=== PATIENT | male | born 1945 | race Caucasian/White ===

== ENCOUNTER → 2019-02-15 11:58 | Outpatient (CLI) | payer MEDICARE, SELFPAY ==
[2019-02-15 12:06] LABS: Adenovirus F 40/41, stool Not Detected (NotDetected); Astrovirus Not Detected (NotDetected); Campylobacter Not Detected (NotDetected); Clostridium Difficile A/B, PCR Not Detected (NotDetected); Cryptosporidium Not Detected (NotDetected); Cyclospora Cayetanesis Not Detected (NotDetected); Entamoeba histolytica Not Detected (NotDetected); Enteroaggregative E coli Not Detected (NotDetected); Enteropathogenic E coli Not Detected (NotDetected); Enterotoxigenic E coli Not Detected (NotDetected); Giardia lamblia Not Detected (NotDetected); Norovirus Not Detected (NotDetected); Plesimonas Shigalloides, PCR Not Detected (NotDetected); Rotavirus A Not Detected (NotDetected); Salmonella, PCR Not Detected (NotDetected); Sapovirus Not Detected (NotDetected); Shiga-like toxin E coli Not Detected (NotDetected); Shigella Enterovasive E coli Not Detected (NotDetected); Vibrio Cholerae Not Detected (NotDetected); Vibrio, PCR Not Detected (NotDetected); Yersinia Entercolitica, PCR Not Detected (NotDetected)
[2019-02-15 14:41] LABS: Basophils # 0.1 K/mm3 (0-0.2); Basophils % 0.7 % (0.1-2.0); Eosinophils # 0.1 K/mm3 (0.0-0.4); Eosinophils % 1.4 % (0.1-12.0); Hematocrit 47.7 % (42.0-52.0); Hemoglobin 15.4 g/dL (14.1-18.0); Lymphocytes # 1.9 K/mm3 (0.7-4.5); Lymphocytes % 19.8 % (10-50); Mean Corpuscular HGB Conc 32.2 g/dL (31.8-35.4); Mean Corpuscular Hemoglobin 30.2 pg (27.0-31.2); Mean Corpuscular Volume 93.9 fl (80-94); Mean Platelet Volume 8.8 fl (7.4-10.4); Monocytes # 0.6 K/mm3 (0.1-1.0); Monocytes % 5.7 % (1.7-9.3); Neutrophils % 72.5 % (37.0-80.0); Platelet Count 339 K/mm3 (142-424); Red Blood Count 5.08 M/mm3 (4.60-6.20); Red Cell Distribution Width 13.2 % (11.5-17.5); White Blood Count 9.7 K/mm3 (4.8-10.8)
[2019-02-15 15:28] LABS: Alanine Aminotransferase 45 U/L (12-78); Albumin/Globulin Ratio 1.3 (1.1-1.8); Alkaline Phosphatase 77 U/L (46-116); Aspartate Amino Transferase 29 U/L (15-37); Bilirubin,Total 0.6 mg/dL (0.2-1.0); Blood Urea Nitrogen 16 mg/dL (7-18); Calcium 9.3 mg/dL (8.5-10.1); Carbon Dioxide 21 mmol/L (21.0-32.0); Chloride 102 mmol/L (98-107); Creatinine,Serum 1.13 mg/dL (0.70-1.30); Estimated Glomerular Filt Rate 63 ml/min (>60); GFR (African American) 77 ML/MIN (>60); Globulin 3.2 gm/dl (1.3-3.2); Glucose 111 mg/dL (74-106); Sodium 138 mmol/L (136-145); Total Protein,Serum 7.2 gm/dL (6.4-8.2)
== END ==
PROVIDERS: PCP Nurse Practitioner Family; Visit Provider Nurse Practitioner Family
DX: K52.1 Toxic gastroenteritis and colitis (principal)
CPT/HCPCS: 36415; 80053; 85025; 87177; 87205; 87506

== ENCOUNTER → 2020-01-04 07:55 | Outpatient (CLI) | payer MEDICARE, SELFPAY ==
--- NOTE | 2020-01-04 08:02 | XR_ITS ---
PROCEDURE: XR LUMBAR SPINE MIN 4V CLINICAL INDICATION: LOW BACK PAIN COMPARISON: No exams were available for comparison FINDINGS: There is normal alignment. No acute fracture or dislocation evident. Mild multilevel degenerative disc disease in the lower thoracic spine, thoracolumbar junction, L1-L2 and L2-L3. Anterior osteophytes are present at every level and there is degenerative disc disease also at L5-S1. Facet arthritic changes are present from L3-S1. 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 IMPRESSION: Lumbar spondylosis with multilevel degenerative changes as described above Dictated by: Herve Merida MD 01/04/2020 09:07 Electronically signed by Herve Merida MD in [place] 01/04/2020 09:07
== END ==
PROVIDERS: PCP Family Medicine; Visit Provider Family Medicine
DX: M54.5 Low back pain (principal)
CPT/HCPCS: 72110

== ENCOUNTER → 2022-12-23 12:00 | Outpatient (CLI) | payer MEDICARE, SELFPAY ==
[2022-12-23 18:10] LABS: Alanine Aminotransferase 19 U/L (12-78); Albumin Level 4.1 g/dl (3.5-5.0); Albumin/Globulin Ratio 1.8 (1.1-1.8); Alkaline Phosphatase 68 U/L (38-126); Anion Gap 18.5 mEq/L (5-15); Aspartate Amino Transferase 23 U/L (17-59); Bilirubin,Total 0.6 mg/dl (0.2-1.3); Blood Urea Nitrogen 22 mg/dl (9-20); Calcium 8.9 mg/dl (8.4-10.2); Carbon Dioxide 25 mmol/L (22.0-30.0); Chloride 98 mmol/L (98-107); Estimated Glomerular Filt Rate 59 ml/min (>60); GFR (African American) 71 ML/MIN (>60); Globulin 2.3 g/dL (1.3-3.2); Glucose 174 mg/dl (74-100); Potassium 4.5 mmoL/L (3.5-5.1); Sodium 137 mmol/L (136-145); Total Protein,Serum 6.4 g/dl (6.3-8.2)
[2022-12-23 18:40] LABS: Prostate Specific Ag Screen 0.2 ng/ml (0.0-4.0)
[2022-12-23 18:43] LABS: Basophils # 0.1 K/mm3 (0-0.2); Basophils % 0.7 % (0.1-2.0); Eosinophils # 0.1 K/mm3 (0.0-0.4); Eosinophils % 1.8 % (0.1-12.0); Hematocrit 43.8 % (42.0-52.0); Hemoglobin 14.8 g/dL (14.1-18.0); Lymphocytes # 1.2 K/mm3 (0.7-4.5); Lymphocytes % 16.1 % (10-50); Mean Corpuscular HGB Conc 33.7 g/dL (31.8-35.4); Mean Corpuscular Hemoglobin 31.4 pg (27.0-31.2); Mean Platelet Volume 9.6 fl (7.4-10.4); Monocytes # 0.5 K/mm3 (0.1-1.0); Monocytes % 6.6 % (1.7-9.3); Neutrophils # 5.4 K/mm3 (1.8-7.8); Neutrophils % 74.8 % (37.0-80.0); Platelet Count 255 K/mm3 (142-424); Red Blood Count 4.71 M/mm3 (4.60-6.20); Red Cell Distribution Width 13.3 % (11.5-17.5); White Blood Count 7.2 K/mm3 (4.8-10.8)
[2022-12-23 20:29] LABS: Hemoglobin A1C 6.9 % (4.0-6.0)
[2022-12-23 22:37] LABS: Thyroid Stimulating Hormone 2.64 uIU/mL (0.465-4.68)
== END ==
PROVIDERS: PCP Family Medicine; Visit Provider Family Medicine
DX: R35.0 Frequency of micturition (principal); I10 Essential (primary) hypertension; E11.9 Type 2 diabetes mellitus without complications; N40.0 Benign prostatic hyperplasia without lower urinary tract symptoms; Z79.84 Long term (current) use of oral hypoglycemic drugs; Z12.5 Encounter for screening for malignant neoplasm of prostate
CPT/HCPCS: 80053; 83036; 84443; 85025; 87086; G0103

== ENCOUNTER → 2023-07-09 08:36 | Outpatient (CLI) | payer MEDICARE, SELFPAY ==
[2023-07-09 16:43] LABS: Basophils % 0.6 % (0.1-2.0); Eosinophils # 0.2 K/mm3 (0.0-0.4); Eosinophils % 2.1 % (0.1-12.0); Hematocrit 45.5 % (42.0-52.0); Hemoglobin 15.3 g/dL (14.1-18.0); Lymphocytes # 1.3 K/mm3 (0.7-4.5); Lymphocytes % 16.6 % (10-50); Mean Corpuscular HGB Conc 33.7 g/dL (31.8-35.4); Mean Platelet Volume 8.9 fl (7.4-10.4); Monocytes # 0.5 K/mm3 (0.1-1.0); Neutrophils # 5.6 K/mm3 (1.8-7.8); Neutrophils % 73.8 % (37.0-80.0); Platelet Count 240 K/mm3 (142-424); Red Blood Count 4.79 M/mm3 (4.60-6.20); Red Cell Distribution Width 13.5 % (11.5-17.5); White Blood Count 7.6 K/mm3 (4.8-10.8)
[2023-07-09 16:55] LABS: Creatinine,Urine Random 100 mg/dL (Not Estab.)
[2023-07-09 16:56] LABS: Microalbumin < 6.000 mg/L (0-16.7)
[2023-07-09 17:00] LABS: Alanine Aminotransferase 20 U/L (12-78); Albumin Level 4.1 g/dl (3.5-5.0); Albumin/Globulin Ratio 1.6 (1.1-1.8); Alkaline Phosphatase 70 U/L (38-126); Anion Gap 14.2 mEq/L (5-15); Aspartate Amino Transferase 26 U/L (17-59); Bilirubin,Total 0.6 mg/dl (0.2-1.3); Blood Urea Nitrogen 18 mg/dl (9-20); Calcium 8.7 mg/dl (8.4-10.2); Carbon Dioxide 24 mmol/L (22.0-30.0); Chloride 97 mmol/L (98-107); Cholesterol 94 mg/dl (140-200); Estimated Glomerular Filt Rate 65 ml/min (>60); GFR (African American) 78 ML/MIN (>60); Globulin 2.6 g/dL (1.3-3.2); Glucose 251 mg/dl (74-100); HDL Cholesterol 31 mg/dl (40-60); Potassium 4.2 mmoL/L (3.5-5.1); Sodium 131 mmol/L (136-145); Total Protein,Serum 6.7 g/dl (6.3-8.2); Triglycerides 146 mg/dl (30-150); VLDL Cholesterol 29 mg/dL (0-40)
[2023-07-09 17:11] LABS: Direct LDL Cholesterol 46.72 mg/dL (100-129)
[2023-07-09 17:30] LABS: Thyroid Stimulating Hormone 2.39 uIU/mL (0.465-4.68)
== END ==
PROVIDERS: PCP Family Medicine; Visit Provider Family Medicine
DX: E11.9 Type 2 diabetes mellitus without complications (principal); E03.9 Hypothyroidism, unspecified; Z79.84 Long term (current) use of oral hypoglycemic drugs; Z79.899 Other long term (current) drug therapy
CPT/HCPCS: 80053; 80061; 82043; 82570; 83036; 84443; 85025

== ENCOUNTER 2023-10-13 16:49 | Outpatient (CLI) | payer MEDICARE, SELFPAY ==
[2023-10-13 16:41] LABS: Alanine Aminotransferase 21 U/L (12-78); Albumin/Globulin Ratio 1.7 (1.1-1.8); Alkaline Phosphatase 71 U/L (38-126); Anion Gap 13.3 mEq/L (5-15); Aspartate Amino Transferase 22 U/L (17-59); Bilirubin,Total 0.8 mg/dl (0.2-1.3); Blood Urea Nitrogen 13 mg/dl (9-20); Calcium 9.2 mg/dl (8.4-10.2); Carbon Dioxide 22 mmol/L (22.0-30.0); Chloride 105 mmol/L (98-107); Chol/HDL Ratio 3.6 (1-3.5); Cholesterol 108 mg/dl (140-200); Estimated Glomerular Filt Rate 82 ml/min (>60); GFR (African American) 99 ML/MIN (>60); Globulin 2.4 g/dL (1.3-3.2); Glucose 163 mg/dl (74-100); HDL Cholesterol 30 mg/dl (40-60); Potassium 4.3 mmoL/L (3.5-5.1); Sodium 136 mmol/L (136-145); Total Protein,Serum 6.4 g/dl (6.3-8.2); Triglycerides 209 mg/dl (30-150); VLDL Cholesterol 42 mg/dL (0-40)
[2023-10-13 16:47] LABS: Basophils # 0.1 K/mm3 (0-0.2); Basophils % 0.8 % (0.1-2.0); Eosinophils # 0.2 K/mm3 (0.0-0.4); Eosinophils % 2.1 % (0.1-12.0); Hematocrit 46.7 % (42.0-52.0); Hemoglobin 15.7 g/dL (14.1-18.0); Lymphocytes # 1.3 K/mm3 (0.7-4.5); Lymphocytes % 18.8 % (10-50); Mean Corpuscular HGB Conc 33.7 g/dL (31.8-35.4); Mean Corpuscular Hemoglobin 32.6 pg (27.0-31.2); Mean Corpuscular Volume 96.7 fl (80-94); Mean Platelet Volume 9.3 fl (7.4-10.4); Monocytes # 0.5 K/mm3 (0.1-1.0); Monocytes % 7.2 % (1.7-9.3); Neutrophils % 71.2 % (37.0-80.0); Platelet Count 235 K/mm3 (142-424); Red Blood Count 4.83 M/mm3 (4.60-6.20); Red Cell Distribution Width 13.8 % (11.5-17.5); White Blood Count 7.1 K/mm3 (4.8-10.8)
[2023-10-13 16:52] LABS: Direct LDL Cholesterol 48.74 mg/dL (100-129)
[2023-10-13 17:11] LABS: Thyroid Stimulating Hormone 2.94 uIU/mL (0.465-4.68)
[2023-10-13 17:21] LABS: Hemoglobin A1C 7.5 % (4.0-6.0)
== END 2023-10-13 23:59 ==
LOC: LAB.DROPOF 16:49
PROVIDERS: PCP Family Medicine; Visit Provider Family Medicine
DX: I10 Essential (primary) hypertension (principal); E11.9 Type 2 diabetes mellitus without complications; E78.5 Hyperlipidemia, unspecified; R53.83 Other fatigue; Z79.84 Long term (current) use of oral hypoglycemic drugs; Z79.899 Other long term (current) drug therapy
CPT/HCPCS: 80053; 80061; 83036; 84443; 85025

== ENCOUNTER 2024-01-19 10:51 | Outpatient (CLI) | payer MEDICARE, SELFPAY | END 2024-01-19 23:59 | disposition home or self-care (01) | LOC: LAB.DROPOF 01-20 10:51 | PROVIDERS: PCP Family Medicine; Visit Provider Family Medicine | DX: E11.9 Type 2 diabetes mellitus without complications (principal); Z79.84 Long term (current) use of oral hypoglycemic drugs | CPT/HCPCS: 83036 ==

== ENCOUNTER 2024-04-20 09:22 | Outpatient (CLI) | payer MEDICARE, SELFPAY ==
[2024-04-20 16:47] LABS: Hemoglobin A1C 6.7 % (4.0-6.0)
[2024-04-20 17:19] LABS: Alanine Aminotransferase 22 U/L (12-78); Albumin Level 3.5 g/dl (3.5-5.0); Albumin/Globulin Ratio 1.3 (1.1-1.8); Alkaline Phosphatase 73 U/L (38-126); Anion Gap 9.9 mEq/L (5-15); Aspartate Amino Transferase 24 U/L (17-59); Bilirubin,Total 0.7 mg/dl (0.2-1.3); Blood Urea Nitrogen 11 mg/dl (9-20); Carbon Dioxide 26 mmol/L (22.0-30.0); Chloride 107 mmol/L (98-107); Chol/HDL Ratio 4.5 (1-3.5); Cholesterol 141 mg/dl (140-200); Estimated Glomerular Filt Rate 93 ml/min (>60); GFR (African American) 113 ML/MIN (>60); Globulin 2.6 g/dL (1.3-3.2); Glucose 148 mg/dl (74-100); HDL Cholesterol 31 mg/dl (40-60); Potassium 3.9 mmoL/L (3.5-5.1); Sodium 139 mmol/L (136-145); Total Protein,Serum 6.1 g/dl (6.3-8.2); Triglycerides 154 mg/dl (30-150); VLDL Cholesterol 31 mg/dL (0-40)
[2024-04-20 17:51] LABS: Thyroid Stimulating Hormone 1.32 uIU/mL (0.465-4.68)
== END 2024-04-20 23:59 | disposition home or self-care (01) ==
LOC: LAB.DROPOF 04-21 12:28
PROVIDERS: PCP Family Medicine; Visit Provider Family Medicine
DX: E78.5 Hyperlipidemia, unspecified (principal); E11.9 Type 2 diabetes mellitus without complications; Z79.84 Long term (current) use of oral hypoglycemic drugs
CPT/HCPCS: 80053; 80061; 83036; 84443

== ENCOUNTER 2024-06-19 11:15 | Outpatient (CLI) | payer MEDICARE, SELFPAY ==
[2024-06-19 16:25] LABS: Basophils # 0.1 K/mm3 (0-0.2); Basophils % 1.1 % (0.1-2.0); Eosinophils # 0.2 K/mm3 (0.0-0.4); Eosinophils % 2.6 % (0.1-12.0); Hematocrit 45.7 % (42.0-52.0); Hemoglobin 16.1 g/dL (14.1-18.0); Lymphocytes # 1.3 K/mm3 (0.7-4.5); Lymphocytes % 18.6 % (10-50); Mean Corpuscular HGB Conc 35.1 g/dL (31.8-35.4); Mean Corpuscular Hemoglobin 31.3 pg (27.0-31.2); Mean Corpuscular Volume 89.1 fl (80-94); Mean Platelet Volume 8.1 fl (7.4-10.4); Monocytes # 0.5 K/mm3 (0.1-1.0); Monocytes % 6.8 % (1.7-9.3); Neutrophils # 4.8 K/mm3 (1.8-7.8); Neutrophils % 70.9 % (37.0-80.0); Platelet Count 254 K/mm3 (142-424); Red Blood Count 5.13 M/mm3 (4.60-6.20); White Blood Count 6.8 K/mm3 (4.8-10.8)
[2024-06-19 17:01] LABS: Alanine Aminotransferase 18 U/L (12-78); Albumin/Globulin Ratio 1.7 (1.1-1.8); Alkaline Phosphatase 62 U/L (38-126); Anion Gap 12.8 mEq/L (5-15); Aspartate Amino Transferase 23 U/L (17-59); Bilirubin,Total 0.9 mg/dl (0.2-1.3); Blood Urea Nitrogen 14 mg/dl (9-20); Calcium 8.7 mg/dl (8.4-10.2); Carbon Dioxide 24 mmol/L (22.0-30.0); Chloride 104 mmol/L (98-107); Estimated Glomerular Filt Rate 81 ml/min (>60); GFR (African American) 98 ML/MIN (>60); Globulin 2.3 g/dL (1.3-3.2); Glucose 141 mg/dl (74-100); Potassium 3.8 mmoL/L (3.5-5.1); Sodium 137 mmol/L (136-145); Total Protein,Serum 6.3 g/dl (6.3-8.2)
[2024-06-19 17:14] LABS: T4 (Thyroxine) 10.4 ug/dl (5.53-11.0)
[2024-06-19 17:27] LABS: Thyroid Stimulating Hormone 1.83 uIU/mL (0.465-4.68)
[2024-06-19 17:32] LABS: HIV (1&2) Antibody Rapid NONREACTIVE (NONREACTIVE)
[2024-06-20 10:22] LABS: HCV Ab Non Reactive (Non Reactive)
== END 2024-06-19 23:59 | disposition home or self-care (01) ==
LOC: LAB.DROPOF 06-20 07:42
PROVIDERS: PCP Family Medicine; Visit Provider Family Medicine
DX: E11.9 Type 2 diabetes mellitus without complications (principal); R53.83 Other fatigue; Z11.59 Encounter for screening for other viral diseases; R41.0 Disorientation, unspecified; Z11.4 Encounter for screening for human immunodeficiency virus [HIV]
CPT/HCPCS: 80053; 84436; 84443; 85025; 86803; 87086; 87389

== ENCOUNTER 2024-06-22 19:42 | Emergency (ER) | payer MEDICARE, SELFPAY ==
[2024-06-22 19:43] VITALS: BP 169/81; PULSE 87; RESP 18; TEMP 36.8; O2SAT 96; BMI 33.5
--- NOTE | 2024-06-22 20:16 | CT_ITS ---
PROCEDURE INFORMATION: Exam: CT Head Without Contrast Exam date and time: 06/22/2024 9:02 PM Age: 78 years old Clinical indication: Pain; Headache; Additional info: Headache, HTN TECHNIQUE: Imaging protocol: Computed tomography of the head without contrast. Radiation optimization: All CT scans at this facility use at least one of these dose optimization techniques: automated exposure control; mA and/or kV adjustment per patient size (includes targeted exams where dose is matched to clinical indication); or iterative reconstruction. COMPARISON: No relevant prior studies available. FINDINGS: Brain: The brain parenchyma appears unremarkable, with no signs of acute intracranial hemorrhage or significant mass effect. There is hypodensity in the subcortical and periventricular white matter which is technically nonspecific but most often related to chronic microvascular disease. Cerebral ventricles: Mild ventricular enlargement consistent with age-related cerebral atrophy is noted. Paranasal sinuses: Paranasal sinuses show age-appropriate mucosal thickening. Mastoid air cells: Visualized mastoid air cells are well aerated. Orbital cavities: Artificial right globe. Teeth: There is dental amalgam which causes streak artifact and mildly limits evaluation of the oral cavity. Bones: There are no skull fractures or bony lesions. Soft tissues: Unremarkable. IMPRESSION: Presumably age-related and chronic changes without acute intracranial abnormality.
--- NOTE | 2024-06-22 20:16 | CT_ITS ---
PROCEDURE INFORMATION: Exam: CTA Head With Contrast, Arteriography Exam date and time: 06/22/2024 9:04 PM Age: 78 years old Clinical indication: Headache; Additional info: Headache, bitemporal, possible gca TECHNIQUE: Imaging protocol: Computed tomographic angiography of the head with contrast. Exam focused on the arteries. 3D rendering (Not supervised by radiologist): MIP and/or 3D reconstructed images were created by the technologist. Radiation optimization: All CT scans at this facility use at least one of these dose optimization techniques: automated exposure control; mA and/or kV adjustment per patient size (includes targeted exams where dose is matched to clinical indication); or iterative reconstruction. Contrast material: ISO 370; Contrast volume: 80 ml; Contrast route: INTRAVENOUS (IV); COMPARISON: CT HEAD/BRAIN WO CON 06/22/2024 9:02 PM FINDINGS: ANTERIOR CIRCULATION: Right internal carotid artery: Intracranial segment is patent with no significant stenosis. No aneurysm. Right middle cerebral artery: No occlusion or significant stenosis. No aneurysm. Right anterior cerebral artery: No occlusion or significant stenosis. No aneurysm. Left internal carotid artery: Intracranial segment is patent with no significant stenosis. No aneurysm. Left middle cerebral artery: No occlusion or significant stenosis. No aneurysm. Left anterior cerebral artery: No occlusion or significant stenosis. No aneurysm. POSTERIOR CIRCULATION: Right vertebral artery: No occlusion or significant stenosis. No aneurysm. Left vertebral artery: No occlusion or significant stenosis. No aneurysm. Basilar artery: No occlusion or significant stenosis. No aneurysm. Right posterior cerebral artery: No occlusion or significant stenosis. No aneurysm. Left posterior cerebral artery: origin left posterior cerebral artery. Brain: No evidence for intracranial hemorrhage, mass lesions or acute stroke. Intracranial vascular calcifications. Mild small vessel ischemic change in the periventricular white matter. Cerebral ventricles: No ventriculomegaly. Orbital cavities: Artificial right globe. Bones/joints: Unremarkable. No acute fracture. Soft tissues: Unremarkable. Other findings: No evidence for large vessel occlusion. Mild generalized atrophy. IMPRESSION: 1. No evidence for large vessel occlusion. 2. origin left posterior cerebral artery. 3. No evidence for intracranial hemorrhage, mass lesions or acute stroke. 4. Intracranial vascular calcifications. 5. Mild generalized atrophy. 6. Mild small vessel ischemic change in the periventricular white matter. 7. Artificial right globe.
--- NOTE | 2024-06-22 20:16 | XR_ITS ---
PROCEDURE INFORMATION: Exam: XR Chest Exam date and time: 06/22/2024 8:46 PM Age: 78 years old Clinical indication: Other: Possible pneumonia; Additional info: Confusion, possible pneumonia TECHNIQUE: Imaging protocol: Radiologic exam of the chest. Views: 2 views. COMPARISON: No relevant prior studies available. FINDINGS: Lungs: No evidence of acute pulmonary disease or infiltrates Pleural spaces: No large effusion or pneumothorax. Heart/Mediastinum: No evidence of mediastinal widening or cardiac silhouette enlargement; the mediastinum and heart appear within normal limits for contour and size. Diaphragm: There is elevation of the right hemidiaphragm. Bones/joints: No evidence of acute osseous abnormalities within the visualized portions of the thoracic spine and ribs. Osseous structures appear appropriate for patient age. IMPRESSION: No dense parenchymal consolidation, pleural effusion, or pneumothorax.
--- NOTE | 2024-06-22 20:18 | ECG_ITS ---
APPROVED REPORT Exam: Resting ECG HR:84 bpm ECG Measurements Heart Rate 84 AXES NJ 267 P 90 QRSd 97 QRS 76 QT 349 T 52 QTc 389 Conclusion SINUS RHYTHM WITH FIRST DEGREE AV BLOCK ABNORMAL ECG UNCONFIRMED REPORT Electronically signed by : JERRI MCGEE, 06/23/2024 06:51:20
--- NOTE | 2024-06-22 20:24 | ED_ITS ---
Discharge Plan Disposition Patient Disposition: Home, Self-Care Condition: Good Prescriptions Prescriptions: No Action acetaminophen 500 mg capsule 1,000 mg PO DAILY dutasteride 0.5 mg capsule See Rx Instructions .ROUTE .COMPLEX Qty: 90 0RF Dose Instruction: Take 1 capsule by mouth once daily Rx Instructions: Take 1 capsule by mouth once daily glimepiride 4 mg tablet See Rx Instructions .ROUTE .COMPLEX Qty: 90 0RF Dose Instruction: Take 1 tablet by mouth once daily Rx Instructions: Take 1 tablet by mouth once daily levothyroxine 100 mcg tablet See Rx Instructions .ROUTE .COMPLEX Qty: 90 0RF Dose Instruction: Take 1 tablet by mouth once daily Rx Instructions: Take 1 tablet by mouth once daily omeprazole 20 mg capsule,delayed release(DR/EC) See Rx Instructions .ROUTE .COMPLEX Qty: 90 0RF Dose Instruction: TAKE 1 CAPSULE BY MOUTH ONCE DAILY FOR STOMACH Rx Instructions: TAKE 1 CAPSULE BY MOUTH ONCE DAILY FOR STOMACH lisinopril 20 mg tablet 20 mg PO DAILY 30 Days Qty: 90 0RF metformin 500 mg tablet extended release 24 hr 500 mg PO TID 90 Days Qty: 270 0RF tamsulosin 0.4 mg capsule See Rx Instructions .ROUTE .COMPLEX Qty: 90 0RF Dose Instruction: Take 1 capsule by mouth once daily Rx Instructions: Take 1 capsule by mouth once daily Referrals Follow up/Referrals: Valerio Abraham MD [Primary Care Provider] - See instructions Activity Restrictions/Add. Instructions Additional Instructions/Restrictions: Follow-up with your primary care physician to discuss medications to help control your blood pressure. If you develop any new or worsening symptoms, or if you become concerned for your health for any reason, return to the emergency department for evaluation. Clinical Impressions Clinical Impression: Hypertension Print Language Print Language: Swedish Discharge ED Provider: Darryl Benito Adult HPI General Chief complaint: Recheck/Abnormal Lab/Rx Stated complaint: high blood pressure 214/120 Time Seen by Provider: 06/22/24 19:50 Mode of Arrival: Ambulatory Source of Information: Patient Limitations: No Limitations Description of Symptoms (Recalled from ER Triage Doc. by RN): Pt to ED with c/o high blood pressure, not feeling well since wednesday, fever and vomiting on night, and daughter reports pt has been forgetful and confused this week as well. pt denies any pain, blurred vision. NIH negative. History of Present Illness HPI narrative: Ben Hartman is a 78-year-old male with a past medical history of hypertension, diabetes mellitus, presenting to the emergency department for complaints of elevated blood pressure and headache. Patient states that back in the spring, his primary care physician took him off his 25 mg amlodipine, diuretic and decreased his dose of lisinopril from 50 to 25 mg. He is here with his daughters who state that his blood pressure has been fairly normal throughout the summer, however the last 2 weeks, it has been more elevated, most recently in the 200s at home today. Patient had a viral respiratory illness 2 weeks ago and then 1-1/2 weeks ago developed a viral gastric illness with diarrhea. Today, the patient was complaining of a headache to both of his temples and stated that he felt like he needed to come to the emergency department. Given his high blood pressure and the symptoms, they were concerned for possible stroke. Patient denies any weakness or numbness. He was seen by his primary care physician on Wednesday and had a urinalysis that was unremarkable. Patient's family notes that he appears to be more confused than normal, stating that he tried to cut a parsnip but did not have a knife. They state that he is normally very active and is usually out of the house from sun up to , however has been staying home recently and missed m[employer]on for the first time in several years. Related Data Home Medications ?Medication ?Instructions ?Recorded ?Confirmed acetaminophen 500 mg capsule 1,000 mg PO DAILY 07/14/22 06/22/24 Previous Rx's ?Medication ?Instructions ?Recorded dutasteride 0.5 mg capsule See Rx Instructions .Route 05/01/24 .COMPLEX #90 caps glimepiride 4 mg tablet See Rx Instructions .Route 06/19/24 .COMPLEX #90 tabs levothyroxine 100 mcg tablet See Rx Instructions .Route 06/19/24 .COMPLEX #90 tabs lisinopril 20 mg tablet 20 mg PO DAILY 30 days #90 tabs 06/19/24 metformin 500 mg tablet,extended 500 mg PO TID 90 days #270 tabs 06/19/24 release 24 hr omeprazole 20 mg capsule,delayed See Rx Instructions .Route 06/19/24 release .COMPLEX #90 caps tamsulosin 0.4 mg capsule See Rx Instructions .Route 11/11/24 .COMPLEX #90 caps Allergies Allergy/AdvReac Type Severity Reaction Status Date / Time No Known Allergies Allergy Verified 06/19/24 11:31 [facility] Disclaimer: The information contained in this section may have been updated after the patient was seen, as this information can be updated by other users. Medical History Kidney stone Hyperlipidemia Hypertension Diabetes mellitus Surgical History History of cholecystectomy Family History Mother Cancer Sister Cancer Father Heart attack Social History Smoking Status: Unknown if ever smoked alcohol intake: never substance use type: denies use current occupational status: retired Travel in the last 8 weeks: None household members: none housing: house Other Medical History Have you received the Flu Vaccine for this season: Yes Have you received the Pneumonia Vaccine: Yes ROS Obtained: Yes Systems reviewed as appropriate & no additional complaints except as documented Physical Exam General General appearance: alert and in no apparent distress Head Head exam: atraumatic Eye Eye exam: Present normal appearance, PERRL and EOMI (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) ENT ENT exam: Present normal external ear exam Neck Neck exam: Present full ROM Chest Chest inspection: Present symmetric chest wall rise Respiratory Respiratory exam: Present normal lung sounds bilaterally; Absent respiratory distress, wheezes or stridor Cardiovascular Cardiovascular exam: Present regular rate and normal rhythm Abdominal Exam Abdominal exam: Present soft; Absent tenderness or guarding exam: Present deferred Extremities Exam Extremities exam: Present normal inspection Back Exam Back exam: Present normal inspection Neurological Exam Neurological exam: Present alert, oriented X3, CN II-XII intact and other (5 out of 5 strength in all extremities. 5 out of 5 sensation in all extremities. No focal deficits.); Absent motor sensory deficit Psychiatric Psychiatric exam: Present normal affect Skin Skin exam: Present warm and dry Medical Decision Making Medical Records Medical records reviewed: Yes I reviewed the patient's medical records. Screening: Per USPSTF and CDC recommendations, given the prevalence of disease in our region, it is our hospital?s policy to screen for HIV and viral Hepatitis for all patients aged 18 and over and those with ongoing risk factors. Sammy Inquiry Pt receiving controlled substance: No Vital Signs: 06/22/24 19:43 06/22/24 23:08 06/22/24 23:10 Temperature 98.2 F 98.2 F 98.2 F Temperature Source Oral Oral Oral Pulse Rate 87 Pulse Rate [Right Radial] 87 87 Respiratory Rate 18 20 20 Blood Pressure 169/81 H Blood Pressure [Right Arm] 169/81 H 169/81 H Blood Pressure Mean [Right Arm] 110 110 Blood Pressure Source Automatic Cuff Blood Pressure Source [Right Arm] Automatic Cuff Automatic Cuff Blood Pressure Position Sitting Blood Pressure Position [Right Arm] Sitting Sitting 02 Sat by Pulse Oximetry 96 96 Oxygen Delivery Method Room Air Room Air Room Air Lab Data Lab Results 06/22/24 20:00: WBC 7.2, RBC 5.15, Hgb 16.1, Hct 44.7, MCV 86.9, MCH 31.3 H, M CHC 36.1 H, RDW 14.2, Plt Count 255, MPV 7.7, Neut % (Auto) 68.4, Lymph % (Auto) 20.2, [place] % (Auto) 6.6, Eos % (Auto) 3.9, Baso % (Auto) 1.0, Neut # (Auto) 4.9, Lymph # (Auto) 1.5, [place] # (Auto) 0.5, Eos # (Auto) 0.3, Baso # (Auto) 0.1, ESR 5, Sodium 138, Potassium 3.5, Chloride 103, Carbon Dioxide 27, Anion Gap 11.5, BUN 10, Creatinine 0.90, Estimated Creat Clear 92, Estimated GFR 81, Est GFR ( Amer) 98, Glucose 121 H, Calcium 8.7, Total Bilirubin 0.6, AST 23, ALT 18, Alkaline Phosphatase 58, Total Protein 6.5, Albumin 4.0, Globulin 2.5, Albumin/Globulin Ratio 1.6, TSH 2.90 D 06/22/24 20:16: VBG pH 7.40, VBG pCO2 43.7, VBG pO2 79.3 H, VBG HCO3 26.6, VBG Total CO2 28.0 H, VBG O2 Saturation 95.6 H, VBG Base Excess 1.9, VBG Lactic Acid 1.9 06/22/24 20:35: Urine Color Yellow, Urine Appearance Clear, Urine pH 6.0, Ur Specific [place] 1.020, Urine Protein Negative, Urine Glucose (UA) Negative, Urine Ketones Negative, Urine Blood Negative, Urine Nitrate Negative, Urine Bilirubin Negative, Urine Urobilinogen 1.0, Ur Leukocyte Esterase Negative, Urine RBC 5-10, Urine WBC 3-5, Ur Squamous Epith Cells 3-5, Urine Bacteria 1+, Urine Mucus 2+ 06/22/24 20:00 06/22/24 20:00 Orders (Tests/Meds): ED MEDICATIONS Discontinued Medications Generic Name Dose Route Start Last Admin Trade Name Freq PRN Reason Stop Dose Admin Iopamidol 80 ml 06/22/24 21:02 06/22/24 21:05 Iopamidol-370 (76%);100ml Bottle IV 06/22/24 21:03 80 ml ONCE ONE Administration Sodium Chloride 50 ml 06/22/24 21:02 06/22/24 21:06 0.9 % Sodium Chloride 50 Ml Vial IV 06/22/24 21:03 50 ml ONCE ONE Administration Sodium Chloride 10 ml 06/22/24 21:02 06/22/24 21:03 Sodium Chloride 0.9% 10ml Syr (Rad Only) IV 07/22/24 21:01 10 ml NEEDED PRN Administration Maintain IV Site ORDERS Category Date Time Status CT angio head Stat Cat Scan 06/22/24 20:[address] angio neck Stat Cat Scan 06/22/24 20:[address] head/brain wo con Stat Cat Scan 06/22/24 20:16 Completed CXR 2 view (NOT portable) [XR chest 2V] Stat Exams 06/22/24 20:16 Completed CBC w/Auto Diff [Complete Blood Count Auto Diff] Stat Lab 06/22/24 20:00 Completed CMP [Comprehensive Metabolic Panel] Stat Lab 06/22/24 20:00 Completed ESR [Erythrocyte Sedimentation Rate] Stat Lab 06/22/24 20:00 Completed TSH [Thyroid Stimulating Hormone] Stat Lab 06/22/24 20:00 Completed Urinalysis and Microscopic Stat Lab 06/22/24 20:35 Completed VBG [Venous Blood Gas] Stat RT 06/22/24 20:16 Completed ECG Data Tracing #1: I reviewed this ECG and interpreted as documented below: EKG interpreted by me personally at 2019. Normal sinus rhythm with first- degree AV block with WA interval 267. Normal QTc of 389. No ST elevation or depression. Medical Decision Narrative: This is Ben Hartman, 78-year-old male with past medical history of hypertension, diabetes mellitus who presents to the emergency department with his daughters for concern for elevated blood pressure and some confusion. Patient has a history of high blood pressure and was taken off of several blood pressure medications and diuretics in the spring by his primary care physician and is only taking 25 mg of lisinopril currently. Reportedly he had normal blood pressures throughout the summer but over the last 2 weeks has had elevated blood pressures with systolics over 200 today. Family is concerned that he has also been more confused over the last 2 weeks and was recently attempting to cut a parsnip without a knife. They also state that he has been staying home recently and missed [employer], which is very uncharacteristic of him. Patient had normal urine and labs on Wednesday with his primary care physician. Patient denies any numbness or weakness. Patient is complaining of headache to both of his temples. On arrival, patient is hypertensive with blood pressure of 169/81, heart rate within normal limits, breathing comfortably on room air with oxygen saturation at 96% SpO2. Afebrile. Differential diagnosis includes: Hypertensive emergency, urinary tract infection, ROLA, pneumonia, electrolyte derangement, hypoglycemia, giant cell arteritis, migraine headache, tension headache, intracranial hemorrhage/mass Patient's workup in the emergency room included: Urinalysis, CTA head and neck, CT head without contrast, two-view chest x-ray, CMP, TSH, VBG, ESR, CBC with differential, urinalysis, lactate Patient's workup reviewed by me personally. No leukocytosis. No anemia. Electrolytes within normal limits and no ROLA. Glucose normal at 121. Liver enzymes within normal limits. Bilirubin within normal limits. TSH normal at 2.9. Urine without evidence of infection. VBG with no acidosis and lactate normal at 1.9. ESR normal at 5. CT imaging interpreted by me personally and demonstrated no acute intracranial hemorrhage or mass or mass effect. CTA imaging demonstrated no significant stenosis or aneurysms within the head or neck. See radiology report for details. On reassessment, patient had no worsening of his symptoms and was eager to get home. His workup today demonstrates no acute pathology. He was encouraged to follow-up with his primary care physician to discuss tighter control of his blood pressure. Return precautions were given. All questions were answered. He and his daughters were both in agreement with this plan. He was then discharged from the emergency department in stable condition. Critical Care Critical Care Time Critical Care Time: No
[2024-06-22 20:26] LABS: Basophils # 0.1 K/mm3 (0-0.2); Eosinophils # 0.3 K/mm3 (0.0-0.4); Eosinophils % 3.9 % (0.1-12.0); Hematocrit 44.7 % (42.0-52.0); Hemoglobin 16.1 g/dL (14.1-18.0); Lymphocytes # 1.5 K/mm3 (0.7-4.5); Lymphocytes % 20.2 % (10-50); Mean Corpuscular HGB Conc 36.1 g/dL (31.8-35.4); Mean Corpuscular Hemoglobin 31.3 pg (27.0-31.2); Mean Corpuscular Volume 86.9 fl (80-94); Mean Platelet Volume 7.7 fl (7.4-10.4); Monocytes # 0.5 K/mm3 (0.1-1.0); Monocytes % 6.6 % (1.7-9.3); Neutrophils # 4.9 K/mm3 (1.8-7.8); Neutrophils % 68.4 % (37.0-80.0); Platelet Count 255 K/mm3 (142-424); Red Blood Count 5.15 M/mm3 (4.60-6.20); Red Cell Distribution Width 14.2 % (11.5-17.5); White Blood Count 7.2 K/mm3 (4.8-10.8)
--- NOTE | 2024-06-22 20:26 | CT_ITS ---
PROCEDURE INFORMATION: Exam: CTA Head With Contrast, Arteriography Exam date and time: 06/22/2024 9:04 PM Age: 78 years old Clinical indication: Headache; Additional info: Headache, HTN TECHNIQUE: Imaging protocol: Computed tomographic angiography of the head with contrast. Exam focused on the arteries. 3D rendering (Not supervised by radiologist): MIP and/or 3D reconstructed images were created by the technologist. Radiation optimization: All CT scans at this facility use at least one of these dose optimization techniques: automated exposure control; mA and/or kV adjustment per patient size (includes targeted exams where dose is matched to clinical indication); or iterative reconstruction. COMPARISON: CT ANGIO HEAD 06/22/2024 9:04 PM FINDINGS: ANTERIOR CIRCULATION: Right internal carotid artery: The right ICA petrous segment is unremarkable. Cavernous and supraclinoid segments demonstrate mild-moderate calcific plaque without stenosis. Right middle cerebral artery: Unremarkable. No occlusion or significant stenosis. No aneurysm. Right anterior cerebral artery: Unremarkable. No occlusion or significant stenosis. No aneurysm. The anterior communicating artery is unremarkable. Left internal carotid artery: The left ICA petrous segment is unremarkable. Cavernous and supraclinoid segments demonstrate mild-moderate calcific plaque without stenosis. Left middle cerebral artery: Unremarkable. No occlusion or significant stenosis. No aneurysm. Left anterior cerebral artery: Hypoplastic left A1 segment, anatomic variant. No occlusion or significant stenosis. No aneurysm. POSTERIOR CIRCULATION: Right vertebral artery: Unremarkable. No occlusion or significant stenosis. No aneurysm. Left vertebral artery: Unremarkable. No occlusion or significant stenosis. No aneurysm. Basilar artery: Unremarkable. No occlusion or significant stenosis. No aneurysm. Right posterior cerebral artery: Small right posterior communicating artery present. No occlusion or significant stenosis. No aneurysm. Left posterior cerebral artery: Normal variant persistent origin with hypoplastic left P1 segment. No occlusion or significant stenosis. No aneurysm. Veins: Venous assessment limited by early contrast phase. Brain: No enhancing brain lesions or vascular malformations are identified. Mild generalized cerebral/cerebellar atrophy. Cerebral ventricles: Mild compensatory ventriculomegaly secondary to central atrophy.. 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 Paranasal sinuses: Changes of chronic sinusitis in the right maxillary sinus and anterior ethmoid distribution. Bones/joints: See Paranasal sinuses finding. Soft tissues: Unremarkable. IMPRESSION: No evidence of large vessel occlusion or significant stenosis. No evidence of arterial dissection or aneurysm/pseudoaneurysm. PROCEDURE INFORMATION: Exam: CTA Neck With Contrast Exam date and time: 06/22/2024 9:04 PM Age: 78 years old Clinical indication: Headache; Additional info: Headache, HTN TECHNIQUE: Imaging protocol: Computed tomographic angiography of the neck with contrast. Exam focused on the cervical segments of the vasculature. 3D rendering (Not supervised by radiologist): MIP and/or 3D reconstructed images were created by the technologist. Radiation optimization: All CT scans at this facility use at least one of these dose optimization techniques: automated exposure control; mA and/or kV adjustment per patient size (includes targeted exams where dose is matched to clinical indication); or iterative reconstruction. Contrast material: ISO 370; Contrast volume: 80 ml; Contrast route: INTRAVENOUS (IV); COMPARISON: CT ANGIO HEAD 06/22/2024 9:04 PM FINDINGS: Right common carotid artery: Mild proximal tortuosity. Mild distal calcific plaque. No significant stenosis. No dissection or occlusion. Right internal carotid artery: Moderate calcific plaque in the right carotid bulb and proximal ICA segment. Moderate distal segment tortuosity near the skull base. No stenosis. No dissection or occlusion. Right external carotid artery: Mild calcific plaque. No stenosis. No dissection or occlusion. Left common carotid artery: Mild calcific plaque in the left carotid bulb and moderate mixed plaque in the proximal left ICA cervical segment producing moderate 50-60% stenosis. Moderate distal segment tortuosity near the skull base. No dissection or occlusion. Left internal carotid artery: Mild calcific plaque in the left carotid bulb. No stenosis. No dissection or occlusion. Left external carotid artery: Minor proximal mixed calcific plaque. No stenosis. No dissection or occlusion. Right vertebral artery: Ostial calcific plaque with mild stenosis of less than 50%. Mild V1 and V2 tortuosity. No dissection or occlusion. Left vertebral artery: Mild-moderate tortuosity in the V1 and proximal V2 segments. No stenosis. No dissection or occlusion. Brachiocephalic artery: The brachiocephalic artery demonstrates mild calcific plaque without stenosis. Right subclavian artery: The right subclavian artery demonstrates mild calcific plaque without stenosis. Left subclavian artery: The left subclavian artery demonstrates mild calcific plaque without stenosis. Aorta: The visualized aortic arch demonstrates mild ectasia and calcific plaque without evidence of dissection or gross aneurysm. Thyroid: Moderate thyroid atrophy. 6 mm calcification in the left thyroid lobe which does not require further evaluation. Soft tissues: No significant soft tissue swelling or hematoma. Bones/joints: No acute osseous abnormalities are identified. Mild-moderate cervical spondylosis. Lungs: Mild subsegmental atelectasis in the dependent upper lung felix. IMPRESSION: 1. No vascular occlusions. No dissection or aneurysm/pseudoaneurysm. 2. 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 3. Ostial calcific plaque in the proximal right vertebral artery producing mild stenosis of less than 50%. REFERENCES: NASCET CRITERIA. The degree of stenosis in the cervical segment of the internal carotid artery is based on NASCET criteria. Normal is no stenosis. Mild is less than 50% stenosis. Moderate is 50-69% stenosis. Severe is 70% to 99% stenosis. Total occlusion is no detectable patent lumen.
[2024-06-22 20:27] LABS: Chloride 103 mmol/L (98-107)
[2024-06-22 20:28] LABS: Potassium 3.5 mmoL/L (3.5-5.1); Sodium 138 mmol/L (136-145)
[2024-06-22 20:31] LABS: Alanine Aminotransferase 18 U/L (12-78); Albumin/Globulin Ratio 1.6 (1.1-1.8); Alkaline Phosphatase 58 U/L (38-126); Anion Gap 11.5 mEq/L (5-15); Aspartate Amino Transferase 23 U/L (17-59); Bilirubin,Total 0.6 mg/dl (0.2-1.3); Blood Urea Nitrogen 10 mg/dl (9-20); Carbon Dioxide 27 mmol/L (22.0-30.0); Creatinine Clearance Estimated 92 mL/min (50-200); Estimated Glomerular Filt Rate 81 ml/min (>60); GFR (African American) 98 ML/MIN (>60); Globulin 2.5 g/dL (1.3-3.2); Total Protein,Serum 6.5 g/dl (6.3-8.2)
[2024-06-22 20:32] LABS: Calcium 8.7 mg/dl (8.4-10.2); Glucose 121 mg/dl (74-100)
[2024-06-22 20:38] LABS: Microscopic, Urine URINE MICROSCOPIC (MICROSCOPIC)
[2024-06-22 20:39] LABS: Appearance,Urine CLEAR (Clear); Bilirubin,Urine Negative (Negative); Blood, Urine Negative (Negative); Color,Urine YELLOW (Yellow); Glucose,Urine (UA) Negative (Negative); Ketones,Urine Negative (Negative); Leukocyte Esterase,Urine Negative (Negative); Nitrate,Urine Negative (Negative); Protein,Urine Negative (Negative)
--- NOTE | 2024-06-22 20:55 | PC.NURSE ---
Pt to CT scan via wheelchair
[2024-06-22 20:59] LABS: Bacteria,Urine 1+ /lpf; Mucus,Urine 2+ /lpf
[2024-06-22 21:00] LABS: Erythrocyte Sedimentation Rate 5 mm/hr (0-20)
[2024-06-22] MEDS: SODIUM CHLORIDE 0.9% 10ML SYR (RAD ONLY) 10 ML IV (21:03)
[2024-06-22] MEDS: IOPAMIDOL-370 (76%);100ML BOTTLE 80 ML IV (21:05)
[2024-06-22] MEDS: 0.9 % SODIUM CHLORIDE 50 ML VIAL IV (21:06)
[2024-06-22 21:34] LABS: Lactate Venous 1.9 mmol/L (0.4-2.0); VBG Base Excess 1.9 mmol/L (-2.4-2.3); VBG HCO3 26.6 mmol/L (23-30); VBG Oxygen Saturation 95.6 % (50-70); VBG PCO2 43.7 mmol/L (35-51); VBG PO2 79.3 mmol/L (28-40)
--- NOTE | 2024-06-22 22:27 | PC.NURSE ---
rounded on pt at this time. pt voices he is ready to go home. explained to pt that we are waiting on one more CT scan to be read. Pt is understanding.
[2024-06-22 23:08] VITALS: BP 169/81; PULSE 87; RESP 20; TEMP 36.8; O2SAT 96
[2024-06-22 23:10] VITALS: BP 169/81; PULSE 87; RESP 20; TEMP 36.8; O2SAT 96
== END 2024-06-22 23:10 | disposition home or self-care (01) ==
PROVIDERS: Emergency Provider Student in an Organized Health Care Education/Training Program; PCP Family Medicine
DX: I10 Essential (primary) hypertension (principal); R50.9 Fever, unspecified; R11.2 Nausea with vomiting, unspecified; R51.9 Headache, unspecified; R41.82 Altered mental status, unspecified
CPT/HCPCS: 70450; 70496; 70498; 71046; 80053; 81001; 82803; 84443; 85025; 85651; 93005; 99285; Q9967

== ENCOUNTER 2025-06-01 10:06 | Outpatient (CLI) | payer MEDICARE, SELFPAY ==
--- OUTSIDE RECORDS SUMMARY | 2025-06-04 10:12 | XMS_ITS | Data Portability ---
Author Organization RANJIT ALINE Anguiano [facility] Address [address] [place] [address] Assessment Encounter Date Assessment Date Assessment LastModified by Organization Details LastModified Time 05/18/2018 05/18/2018 SURGERY DATE: 05/18/2018 PREOPERATIVE DIAGNOSES: A 7 mm right proximal ureteral stone. POSTOPERATIVE DIAGNOSES: Right mid ureteral stone. PROCEDURE: Cystoscopy, right ureteroscopy, laser lithotripsy, ureteral stone, basket extraction of fragments, right ureteral stent placement, fluoroscopic interpretation. DRAINS: A 4.8 x 26 right ureteral stent, string attached. SPECIMENS: Stone fragments. COMPLICATIONS: None. ANESTHESIA: General. SURGEON: Edwin Vazquez MD BRIEF HISTORY: The patient is a 72-year-old gentleman with a history of urolithiasis. Earlier this year, he was treated for left-sided stones. We elected to observe with 7 mm lower pole stone at that time. He presented with one week of right flank pain intermittently at [facility]. He had CT scans that demonstrated 7 mm stone, proximal right ureter. We had arranged for ureteroscopic intervention. Risks were discussed including bleeding, infection, ureteral perforation, retained ureteral stone fragments ____ intervention. He understands and wishes to proceed. OPERATIVE NOTE: After satisfactory anesthesia, he was carefully placed in the dorsal lithotomy position. Genitalia prepped and draped in normal fashion. A #22-Egyptian cystoscope sheath was introduced under direct vision with 30-degree lens. The urethra appeared normal. His prostate was moderately obstructing. Upon entering the bladder, he had some sand within the floor of the bladder. A 0.035 Sensorwire was easily advanced up the right side where he encountered a probable stone just above the iliac vessels. The wire was then advanced to the level of the kidney. The semirigid ureteroscope was then introduced after removing the cystoscope. The distal ureter seemed somewhat dilated and easily advanced up to the stone. The stone was large. A 200 micron fiber was used to fragment it into smaller pieces and these were carefully extracted with a 2.4 Zero Tip Nitinol basket atraumatically. This did take several passes. There was no ureteral perforation. At the final inspection, there was no significant stone merging in within the ureter. The stent was then placed over the wire. There was a good coil in the kidney and coil in the bladder. Strings was attached next to the urethra. Cystoscope was introduced and the bladder irrigated. String was secured to the kristin and Tegaderm. Xylocaine jelly was instilled in the urethra. We placed on Bactrim double strength b.i.d. for a week, Pyridium. I will remove the stent in 72 hours. [email or web address] Not available 05/19/2018 08:06:51 Plan of Treatment Reminders Order Date Submit Date Provider Last Modified By Organization Details Last Modified Time Details Appointments None recorded. Lab PSA, serum or plasma 2022 023 [email or web address] [facility], [address], [facility] [address], [place], [address], 3 00:10:05 culture, urine 2017 018 [facility], [address] [place], [address], 8 11:07:31 urinalysis , dipstick, auto 2017 018 [facility], [address], [address], [place], [address], 8 11:34:26 Referral None recorded. Procedures None recorded. Surgeries cystoscopy , with ureterosco py, with lithotrips y (SURG) 2017 018 celeste [facility], [address] [facility] [address], [place], [address], 8 16:58:32 Imaging None recorded. Medication Orders doxycyclin e monohydrat e 100 mg capsule 2017 018 INTERFACE [facility] [address], [address] [facility], [place], [address], 11:34:31 Patient TargetsNo targets recorded. Patient Instructions Encounter Date Encounter Id Patient Instructions Last Modified By Organization Details Last Modified Time 05/13/2018 [id number] healthy together [email or web address] Not availabl e 05/14/2018 13:32:14 learning about high blood pressure Not available 05/14/2018 13:32:14 kidney stone: care instructions [email or web address] Not available 05/14/2018 13:32:14 learning about diet for kidney stone prevention Not available 05/14/2018 13:32:14 05/27/2018 [id number] Male Urinary Tract Infection (UTI): Care Instructions [email or web address] Not available 05/27/2018 15:27:35 Plan for doxycycline therapy of prostatitis. He will follow-up with Dr. Foote Next week [email or web address] Not available 05/29/2018 17:25:43 Reason for Referral None Reported. Results Created Date Observation Date Name Description Value Unit Range Abnormal Flag Note LastModifiedBy Organization Detail LastModifiedTime 05/18/2005/21/2018 kidne y stone carmina sis nidus Not observ ed normal Not Available [facility] [address] [place] [address], [address], 05/21/2018 16:05:16 05/18/20 18 05/21/2018 kidne y stone carmina sis composition See Below normal Calci um Oxala te Monoh ydrat e (Whew ellit e) 80% Uric Acid 20% Not Available [facility] [address] [place], [address], 05/21/2018 16:05:16 05/18/20 18 05/21/2018 kidne y stone carmina sis weight 0.0810 g normal This test was devel oped and its carmina tical perfo rmanc e meera cteri stics have been deter mined by [facility]. It has not been clear ed or appro delroy by the US Food and Drug Admin istra tion. This assay has been valid ated pursu ant to the CLIA regul ation s and is used for clini mauricio purpo ses. TEST PERFO RMED AT: [facility]ARNA LS BINA [facility] [address] [place] [address] Jacquelyn GRAHAM,PHD Not Available [facility] [address] [place] [address], [address], 05/21/2018 16:05:16 05/18/20 18 05/18/2018 urina lysis , dipst ick, auto Unknown Analyte Yellow Not Available [facility] Schedule [address] [place] [address], [address], 05/18/2018 08:29:44 05/18/20 18 05/18/2018 urina lysis , dipst ick, auto Unknown Analyte Clear Not Available [facility] Schedule [address] [place], [address], 05/18/2018 08:29:44 05/18/20 18 05/18/2018 urina lysis , dipst ick, auto Unknown Analyte 1.015 Not Available [facility] Schedule [address] [place], [address], 05/18/2018 08:29:44 05/18/20 18 05/18/2018 urina lysis , dipst ick, auto Unknown Analyte 5.0 Not Available [facility] Schedule [address] [place], [address], 05/18/2018 08:29:44 05/18/20 18 05/18/2018 urina lysis , dipst ick, auto Unknown Analyte Negati ve Not Available [facility] Schedule [address] [place], [address], 05/18/2018 08:29:44 05/18/20 18 05/18/2018 urina lysis , dipst ick, auto Unknown Analyte Negati ve Not Available [facility] Schedule [address] [place], [address], 05/18/2018 08:29:44 05/18/20 18 05/18/2018 urina lysis , dipst ick, auto Unknown Analyte Negtiv e Not Available [facility] Schedule [address] [place], [address], 05/18/2018 08:29:44 05/18/20 18 05/18/2018 urina lysis , dipst ick, auto Unknown Analyte Normal Not Available [facility] Surgery Schedule [address] [place], [address], 05/18/2018 08:29:44 05/18/20 18 05/18/2018 urina lysis , dipst ick, auto Unknown Analyte Negati ve Not Available [facility] Schedule [address] [place], [address], 05/18/2018 08:29:44 05/18/20 18 05/18/2018 urina lysis , dipst ick, auto Unknown Analyte Normal Not Available [facility] Schedule [address] [place], [address], 05/18/2018 08:29:44 05/18/20 18 05/18/2018 urina lysis , dipst ick, auto Unknown Analyte Negati ve Not Available [facility] Schedule [address] [place], [address], 05/18/2018 08:29:44 05/18/20 18 05/18/2018 urina lysis , dipst ick, auto Unknown Analyte Negati ve Not Available [facility] Schedule [address] [place], [address], 05/18/2018 08:29:44 05/18/20 18 05/18/2018 urina lysis , dipst ick, auto Unknown Analyte Clean Catch Not Available [facility] Schedule [address] [place], [address], 05/18/2018 08:29:44 05/18/20 18 05/18/2018 urina lysis , dipst ick, auto Unknown Analyte Automa curt Not Available [facility] Surgery Schedule [address] [place], [address], 05/18/2018 08:29:44 05/27/2005/27/2018 cultu re, urine results [facility] e: CCUR Colle cted: 05/27 11:48 Site: Recei delroy : 05/27 15:55 URINE SCREE N(CUL TURE) FINAL 05/30 10:44 05/30 No growt h day 3. Not Available [facility] [address] [place], [address], 05/30/2018 10:44:57 05/27/2005/27/2018 urina lysis , dipst ick, auto Unknown Analyte Yellow Not Available [facility] [address], [address], 05/27/2018 11:22:34 05/27/2005/27/2018 urina lysis , dipst ick, auto Unknown Analyte Clear Not Available [facility] [address] [place] [address] [address], [place], [address], 05/27/2018 11:22:34 05/27/2005/27/2018 urina lysis , dipst ick, auto Unknown Analyte 1.015 Not Available [facility] [address] [place] [address] [address], [place], [address], 05/27/2018 11:22:34 05/27/2005/27/2018 urina lysis , dipst ick, auto Unknown Analyte 1.003 - 1.035 Not Available [facility] [address], [place], [address], 05/27/2018 11:22:34 05/27/20 18 05/27/2018 urina lysis , dipst ick, auto Unknown Analyte 5.0 Not Available [facility] [address] [facility] [address], [place], [address], 05/27/2018 11:22:34 05/27/2005/27/2018 urina lysis , dipst ick, auto Unknown Analyte 5.0 - 8.0 Not Available [facility] [address] [facility] [address], [place], [address], 05/27/2018 11:22:34 05/27/2005/27/2018 urina lysis , dipst ick, auto Unknown Analyte 25 Shira/ul Trace Not Available [facility] [address] [facility] [address], [place], [address], 05/27/2018 11:22:34 05/27/2005/27/2018 urina lysis , dipst ick, auto Unknown Analyte Negati ve Not Available [facility] [address] [facility] [address], [place], [address], 05/27/2018 11:22:34 05/27/2005/27/2018 urina lysis , dipst ick, auto Unknown Analyte Negati ve Not Available [facility] [address] [facility] [address], [place], [address], 05/27/2018 11:22:34 05/27/2005/27/2018 urina lysis , dipst ick, auto Unknown Analyte Negati ve Not Available [facility] [address], [place], [address], 05/27/2018 11:22:34 05/27/2005/27/2018 urina lysis , dipst ick, auto Unknown Analyte Trace Not Available [facility] [address], [place], [address], 05/27/2018 11:22:34 05/27/2005/27/2018 urina lysis , dipst ick, auto Unknown Analyte Negati ve - Trace Not Available [facility] [address], [place], [address], 05/27/2018 11:22:34 05/27/2005/27/2018 urina lysis , dipst ick, auto Unknown Analyte Normal Not Available [facility] [address], [place], [address], 05/27/2018 11:22:34 05/27/2005/27/2018 urina lysis , dipst ick, auto Unknown Analyte Normal Not Available [facility] [address], [place], [address], 05/27/2018 11:22:34 05/27/2005/27/2018 urina lysis , dipst ick, auto Unknown Analyte Negati ve Not Available [facility] [address], [place], [address], 05/27/2018 11:22:34 05/27/2005/27/2018 urina lysis , dipst ick, auto Unknown Analyte Negati ve Not Available [facility] [address], [place], [address], 05/27/2018 11:22:34 05/27/20 18 05/27/2018 urina lysis , dipst ick, auto Unknown Analyte Normal Not Available [facility] [address], [place], [address], 05/27/2018 11:22:34 05/27/2005/27/2018 urina lysis , dipst ick, auto Unknown Analyte Normal - 1mg/dl Not Available [facility] [address] [facility] [address], [place], [address], 05/27/2018 11:22:34 05/27/2005/27/2018 urina lysis , dipst ick, auto Unknown Analyte Negati ve Not Available [facility] [address], [place], [address], 05/27/2018 11:22:34 05/27/2005/27/2018 urina lysis , dipst ick, auto Unknown Analyte Negati ve Not Available [facility] [address], [place], [address], 05/27/2018 11:22:34 05/27/2005/27/2018 urina lysis , dipst ick, auto Unknown Analyte 250 Mandeep/ul Not Available [facility] [address], [place], [address], 05/27/2018 11:22:34 05/27/20 18 05/27/2018 urina lysis , dipst ick, auto Unknown Analyte Negati ve Not Available [facility] [address], [place], [address], 05/27/2018 11:22:34 05/27/20 18 05/27/2018 urina lysis , dipst ick, auto Unknown Analyte Clean Catch Not Available [facility] [address] [place] [address] [address], [place], [address], 05/27/2018 11:22:34 05/27/20 18 05/27/2018 urina lysis , dipst ick, auto Unknown Analyte Automa curt Not Available [facility] [address] [place] [address] [address], [place], [address], 05/27/2018 11:22:34 06/16/20 23 06/16/2023 PSA, serum or plasm a PSA 0.22 NG/mL 0.0 - 4.0 Not Available [facility] [address] [place] [address] [address], [place], [address], 06/16/2023 15:15:52 07/04/20 18 05/12/2018 CT, abdom en + pelvi s, w/o contr ast No observ ation record ed. BARCODE [facility] [address], [place], [address], 07/04/2018 16:45:43 Result Notes None recorded. Problems No Known Problems Procedures Surgical History Date Name Laterality Status Provider Name and Address Organization Details Recorded Time 02/05/20 18 EXTRA CORPOREAL SHOCKWAVE LITHOTRIPSY (SURG) completed Joy Bagley [facility] 02/07/2018 11:21:45 [facility] 13:36:42 Imaging Results None recorded. Procedure Notes None recorded. Medical Equipment None Reported. Allergies No known drug allergies Medications Name Sig Start Date Stop Date Status Note LastModified by Organization Details LastModified Time Percocet 7.5 mg-500 mg tablet Every four hours active Duratio n: 10 days;Fr equency : q4h;Alt Frequen cy: prn;Med ication Descrip tion: acetami nophen- oxycodo ne; Dosage: 1; Route:o ral; refills :0; Quantit y:40 tablet Not Available Not Available Not Available metoprolol succinate ER 100 mg tablet,extend ed release 24 hr Daily active Frequen cy: daily;M edicati on Descrip tion: metopro lol; Dosage: 1; Route:o ral; refills :0 Not Available Not Available Not Available chlorthalidon e 25 mg tablet Take 1 tablet every day by oral route. active Not Available Not Available No t Available levothyroxine 100 mcg tablet Daily active Frequen cy: daily;M edicati on Descrip tion: levothy roxine; Dosage: 1; refills :0 Not Available Not Available Not Available Lortab 10 mg-500 mg tablet Every four to six hours active Frequen cy: q4-q6h; Alt Frequen cy: prn;Med ication Descrip tion: acetami nophen- hydroco done; Dosage: 1; Route:o ral; refills :0; Quantit y:25 tablet Not Available Not Available Not Available doxycycline monohydrate 100 mg capsule Take 1 capsule twice a day by oral route. 2017 active Not Available Not Available Not Avai lable lisinopril 10 mg tablet Daily active Frequen cy: daily;M edicati on Descrip tion: lisinop ril; Dosage: 1; Route:o ral; refills :0 Not Available Not Available Not Available omeprazole 20 mg capsule,delay ed release Daily active Frequen cy: daily;M edicati on Descrip tion: omepraz ole; Dosage: 1; Route:o ral; refills :0 Not Available Not Available Not Available acetaminophen active Not Available Not Available Not Available tamsulosin active Not Available Not Av ailable Not Available metformin active Not Available Not Dorina ilable Not Available glimepiride active Not Available Not A vailable Not Available dutasteride active Not Available Not A vailable Not Available Glucosamine-C hondrotin Daily active Frequen cy: daily;M edicati on Descrip tion: miscell aneous; Dosage: 1; refills :0 Not Available Not Available Not Available rosuvastatin active Not Available Not Available Not Available Vitals Date Recorded Body weight Body mass index (BMI) Body height Heart rate Systolic And Diastolic Provider Name and Address Organization Details Last Updated DateTime 05/13/2018 017787.7 9 g 40.4 kg/m2 180.34 cm 69 /min 141/83 mm[Hg] Franciaherberth Hunter [facility] 05/13/2018 14:16:48 Date Recorded Body height Body mass index (BMI) Body weight Heart rate Systolic And Diastolic Provider Name and Address Organization Details Last Updated DateTime 05/27/2018 180.34 cm 40.4 kg/m2 394704.7 9 g 82 /min 151/84 mm[Hg] Francia Uptonnikita [facility] 05/27/2018 11:21:55 Date Recorded Body height Body mass index (BMI) Body weight Provider Name and Address Organization Details Last Updated DateTime 06/16/2023 180.34 cm 33.5 kg/m2 773433.17 g Khrisrenu Alex [facility] 06/16/2023 13:33:33 Social History Question Answer Notes LastModified by Organizat ion Details LastModified Time Tobacco Smoking Status Never Smoker Francia Hunter [facility] 05/13/2018 14:17:26 Marital Status Informatio n not available 05/13/2018 What Was The Date Of Your Most Recent Tobacco Screening? 05/27/2018 Information n ot available 09/26/2019 Sex: Unknown Functional Status Question Answer Note LastModified by Organization D etails LastModified Time What is your level of alcohol consumption? None Information not available 05/13/2018 What is your occupation? [employer] Information not available 05/13/2018 Mental Status None recorded. Family History Relationship Description Onset Age of this Age Resolved Age Notes LastModified by Organization Details LastModified Time Unspecified Relation Diabetes mellitus bbatten Not available 2017 14:17:18 Medical History Condition Response Kidney Stones Y Past Encounters Encounter ID Performer Location Encounter Start Date Encounter Closed Date Diagnosis/Indication Diagnosis SNOMED-CT Code Diagnosis ICD10 Code Diagnosis IMO Codes Diagnosis Note [id number] EDWIN VAZQUEZ MD [facility] [address] [facility] [place] [address] 05/13/2018 13:45:44 05/13/2018 15:20:04 Kidney stone 01941017 N20.0 We will arrange for right ureterosco py and laser of proximal ureteral stone. He will likely have a ureteral stent perioperat ively. [id number] EDWIN VAZQUEZ MD SURGERY SCHEDULE [address] [place] [id number] 05/18/2018 06:56:35 05/18/2018 06:57:50 [id number] NANCY KIRKLAND JR, MD [facility] [address] [facility] [address] [facility] [place] [id number] 05/27/2018 10:56:16 05/27/2018 11:40:36 Acute prostatitis 96533684 N41.0 Urinary tr act infectious disease 98956375 N39.0 [id number] EDWIN VAZQUEZ MD [facility] [address] [facility] [facility] [address] [place], [place] [id number] 06/16/2023 13:01:03 06/16/2023 14:38:50 Benign prostatic hyperplasia with outflow obstruction 739146501 N40.1 He will increase his current tamsulosin to twice daily. He will continue with dutasterid e and follow-up in 3 to 4 weeks. If he is not markedly improved we will consider cystoscopy Health Concerns Section Related Observation LastModified by Organization Detai ls LastModified Time None Recorded Concern Status LastModified by Organization Details LastModified Time None Recorded Advance Directives Directive None Recorded Payers Insurance Date Sequence Insurance Name Policy Number Policy Roque Covered Member ID Roque Member ID Guarantor Name 06/16/2023 1 [facility] [id number] Ben Hartman [id number] Ben Hartman 07/13/2023 1 [facility] (MEDICARE REPLACEMENT/A DVANTAGE - PPO) [id number] Ben Hartman [id number] Ben Hartman Notes Date Note Type Note Provider Name and Address Organization Details Recorded Time 05/13/2018 text/html Patient is typically followed by me in [place]. He had recent left stone intervention. He had acute onset of right flank pain several days ago. He was seen in the emergency room and [place] yesterday.A CT scan obtained revealed a 7 mm stone proximal right ureter. He also has a small stone lower pole on the right. His pain now is reasonably controlled with oral pain medication. He has had no fever or chills. We discussed intervention with ureteroscopy and laser of the stone. We discussed shockwave lithotripsy. First available treatment elective option will be on Wednesday with right ureteroscopy and laser of the stone. Apparently his currently is hospitalized at [facility] in grave condition. He was given a prescription for Dilaudid 4 mg. EDWIN VAZQUEZ MD [address] [place] [address], [phone], [facility] 05/14/2018 13:35:10 05/27/2018 text/html Patient is in today for follow-up after recent kidney stone surgery. On May 18, 2018 the underwent right ureteroscopy with laser lithotripsy. He removed his stents a few days later. He denies flank pain. He reports increasing urgency of urination with perineal discomfort. NANCY KIRKLAND JR, MD [address] [place] [address], [phone], [facility] 05/29/2018 17:26:01 06/16/2023 text/html Patient is here for initial visit regarding obstructive urination symptoms with urinary frequency. He typically has nocturia x2. He takes tamsulosin daily as well as dutasteride. He is seen one of my partners 5 years ago for urolithiasis and had ureteroscopy laser. He has had no further stones. States that his voiding symptoms have been much more bothersome over the last 6 months. We discussed increasing his tamsulosin to twice daily and continue with the dutasteride. We also discussed that if he fails to improve that we should consider cystoscopy. EDWIN VAZQUEZ MD [address] [place] [address] [place], [phone], [facility] 06/21/2023 00:10:34
--- OUTSIDE RECORDS SUMMARY | 2025-06-04 10:12 | XMS_ITS | Clinical Summary ---
Author Organization [facility] Address [address] [place] [address] Care Team Providers Care Cq Developer Name Role Phone Valerio Abraham MD Primary Care Provider Merline vailable Allergies No known active allergies Medications aspirin 81 MG EC tablet Take 1 tablet (81 mg) by mouth 1 (one) time each day. Active chlorthalidone (Hygroton) 25 MG tablet Take 1 tablet (25 mg) by mouth Daily. Active dutasteride (Avodart) 0.5 MG capsule Take 1 capsule (0.5 mg) by mouth 1 (one) time each day. 10/20/2023 Active glimepiride (Amaryl) 4 MG tablet Take 1 tablet (4 mg) by mouth 1 (one) time each day. 06/23/2024 Active levothyroxine (Synthroid, Levoxyl) 100 MCG tablet 0.5 tablets (50 mcg). Active lisinopril 20 MG tablet Take 1 tablet (20 mg) by mouth 1 (one) time each day. Active metFORMIN XR (Glucophage-XR) 500 MG 24 hr tablet Take 1 tablet (500 mg) by mouth 3 (three) times a day. 05/01/2024 Active metoprolol succinate XL (Toprol-XL) 50 MG 24 hr tablet Take 1 tablet (50 mg) by mouth 1 (one) time each day. 07/05/2024 Active omeprazole (PriLOSEC) [address] capsule TAKE 1 CAPSULE BY MOUTH ONCE DAILY FOR STOMACH 06/23/2024 Active tamsulosin (Flomax) 0.4 MG 24 hr capsule Take 1 capsule (0.4 mg) by mouth 1 (one) time each day. 09/27/2023 Active Immunizations Immunization Administration Dates Next Due Influenza, high-dose, quadrivalent 05/26/2023, Influenza, injectable, MDCK, preservative free, quadrivalent 06/24/2018 Influenza, injectable, quadrivalent, preservativ e free 05/14/2021 Family History Medical History Relation Name Comments Heart attack Father Stroke Maternal Grandmother Diabetes Mother Hypertension Mother Relation Name Status Comments Father Maternal Grandmother Mother Social History Tobacco Use Types Packs/Day Years Used Date Smoking Tobacco: Never Passive Smoke Exposure: Past Smokeless Tobacco: Never Tobacco Cessation:Counseling Given: Not Answered Comments:Used to farm tobacco Alcohol Use Standard Drinks/Week Comments Yes 0 (1 standard drink = 0.6 oz pur e alcohol) 1-2 beers a year PHQ-2 Answer Date Recorded Patient Health Questionnaire-2 Score 2 07/11/2024 PHQ-9 Answer Date Recorded Patient Health Questionnaire-9 Score 12 07/11/2024 Sex and Gender Information Value Date Recorded Sex Assigned at Not on file Legal Sex Male 6:42 PM EDT Gender Identity Not on file Sexual Orientation Not on file Last Filed Vital Signs Vital Sign Reading Time Taken Comments Blood Pressure 116/76 07/11/2024 2:09 PM EST Pulse 83 07/11/2024 2:09 PM EST Temperature 36.7 C (98.1 F) 07/03/2024 4:12 PM EST Respiratory Rate 16 07/03/2024 4:12 PM EST Oxygen Saturation 95% 07/11/2024 2:09 PM EST Inhaled Oxygen Concentration - - Weight 112 kg (246 lb 7.6 oz) 07/11/2024 2:09 PM EST Height 180.3 cm (5' 11 ) 07/11/2024 2:09 PM EST Body Mass Index 34.38 07/11/2024 2:09 PM EST Plan of Treatment Health Maintenance Due Date Last Done Comments [facility]Med[facility] Annual Wellness (AWV) 1944 [facility]-Infant/Child/Adol SDOH Screenings 1944 [facility]- SDOH Screenings 1962 [facility]-Adult SDOH Screenings 1962 [facility]-DTaP,Tdap,and Td Vaccines (1 - Tdap) 12/07/1963 [facility]-Pneumococcal Vaccine: 50+ Years (1 of 1 - PCV) 1994 [facility]-Zoster Vaccines (1 of 2) 1994 [facility]-RSV Vaccine: 60+ Years or (1 - 1-dose 75+ series) 12/07/2019 [id number] Vaccine (5 - 2024- season) 2025 07/13/2023, 07/10/2021, 09/17/2020, Additional history exists [facility]-Influenza Vaccine (#1) 04/09/202507/26, 05/26/2023, 05/25/2022, Additional history exists [facility]-Depression Screening 07/11/2025 07/11/2024, 10/2023 [facility]-Obesity Intervention Completed 07/11/2024 HPV Vaccines Aged Out No longer eligi ble based on patient's age to complete this topic [facility]-HIB Vaccines Aged Out No longer e ligible based on patient's age to complete this topic [facility]-Hepatitis A Vaccines Aged Out No longer eligible based on patient's age to complete this topic [facility]-IPV Vaccines Aged Out No longer e ligible based on patient's age to complete this topic [facility]-Rotavirus Vaccines Aged Out No lo nger eligible based on patient's age to complete this topic Insurance [facility] MEDICARE Care Teams Cq Developer Relationship Specialty Start Date End Date Valerio Abraham MD PCP - General Family Medicine 07/10/24
--- OUTSIDE RECORDS SUMMARY | 2025-06-04 10:12 | XMS_ITS | Clinical Summary ---
Author Organization [facility] Address [address] [place] [address] Care Team Providers Care Transformer Repairer Name Role Phone Valerio Abraham MD Primary Care Provider [phone] Allergies No known active allergies Medications metFORMIN ER (GLUCOPHAGE-XR) 500 MG 24 hr tablet Take 3 tablets by mouth Daily With Breakfast. 8 Active omeprazole (priLOSEC) 20 MG capsule Take 1 capsule by mouth Daily. 8 Active Acetaminophen (TYLENOL GO TABS EXTRA STRENGTH PO) Take by mouth. Ac tive glimepiride (AMARYL) 4 MG tablet TAKE 1 TABLET BY MOUTH ONCE DAILY WITH BREAKFAST OR THE FIRST MAIN MEAL OF THE DAY. 1 Active levothyroxine (SYNTHROID, LEVOTHROID) 100 MCG tablet 0.5 tablets. Active rosuvastatin (CRESTOR) 10 MG tablet Take 1 tablet by mouth once daily 90 tablet 3 2 Active chlorthalidone (HYGROTON) 25 MG tablet Take 0.5 tablets by mouth Daily. Please call to schedule an appointment or defer to PCP 15 tablet 3 Active tamsulosin (FLOMAX) 0.4 MG capsule 24 hr capsule Take 1 capsule by mouth Daily. 4 Active dutasteride (AVODART) 0.5 MG capsule Take 1 capsule by mouth Daily. 4 Active lisinopril (PRINIVIL,ZESTR IL) 20 MG tablet Take 1 tablet by mouth Daily. 90 tablet 3 4 Active Additional Information Patient taking differently: 40 mgOral Daily, Reported on 01/11/2025 aspirin 81 MG EC tablet Take 1 tablet by mouth Daily. Active magnesium oxide (MAG-OX) 400 MG tablet Take 1 tablet by mouth Daily. 3 tablet 4 Active metoprolol succinate XL (TOPROL-XL) 50 MG 24 hr tablet Take 1 tablet by mouth Daily. 90 tablet 1 5 Active Active Problems Problem Noted Date Diagnosed Date Type 2 diabetes mellitus wit hout complication, without long-term current use of insulin 09/20/2020 SHITAL (obstructive sleep apnea) 09/20/2020 Essential hypertension 09/20/2020 Gastroesophageal reflux disease without esophagi tis 09/20/2020 Hypertensive heart disease without heart failure 09/20/2020 Hypothyroidism (acquired) 09/20/2020 Moderate obesity 09/20/2020 Encounters Date Type Department Care Team Description 04/04/2025 Refill [facility] [address] [facility] [address] [place] [address] Navya Man APRN Med Refill from Last 3 Months Immunizations Immunization Administration Dates Next Due Fluzone (or Fluarix & Flulaval for VFC) >6mos Fluzone High-Dose 65+YRS 07/26/2024 Fluzone High-Dose 65+yrs 05/26/2023,05/25/2022 Influenza Injectable Mdck Pf Quad 06/24/2018 Family History Medical History Relation Name Comments Heart attack Father Cancer Mother Diabetes Mother Cancer Sister Relation Name Status Comments Father Mother Sister Social History Tobacco Use Types Packs/Day Years Used Date Smoking Tobacco: Never Passive Smoke Exposure: Past Smokeless Tobacco: Never Tobacco Cessation:Counseling Given: Not Answered Alcohol Use Standard Drinks/Week Comments Never 0 (1 standard drink = 0.6 oz pur e alcohol) AUDIT-C Answer Date Recorded Q1: How often do you have a drink containing alc ohol? Never 01/10/2021 Average Number of Drinks Not on file 021 Frequency of Binge Drinking Not on file 11/2020 Sex and Gender Information Value Date Recorded Sex Assigned at Male 01/11/2025 7:28 AM EDT Legal Sex Male 9:10 AM EST Gender Identity Not on file Sexual Orientation Not on file Last Filed Vital Signs Vital Sign Reading Time Taken Comments Blood Pressure 102/60 01/11/2025 8:40 AM EDT Pulse 75 01/11/2025 8:40 AM EDT Temperature 36.6 C (97.8 F) 01/11/2025 8:40 AM EDT Respiratory Rate - - Oxygen Saturation 96% 01/11/2025 8:40 AM EDT Inhaled Oxygen Concentration - - Weight 107 kg (236 lb) 01/11/2025 8:40 AM EDT Height 180.3 cm (5' 10.98 ) 01/11/2025 8:40 AM E DT Body Mass Index 32.93 01/11/2025 8:40 AM EDT Plan of Treatment Upcoming Encounters Date Type Department Care Team (Late st Contact Info) Description 01/14/2026 8:15 AM EDT Office Visit [facility] [address] [place] [address] Teagan Bey, [employer] [address] [place] [address] Health Maintenance Due Date Last Done Comments DIABETIC EYE EXAM 1954 DIABETIC FOOT EXAM 1954 URINE MICROALBUMIN-CREATININ E RATIO (uACR) 1955 Pneumococcal Vaccine 50+ (1 of 2 - PCV) 12/07/1963 TDAP/TD VACCINES (1 - Tdap) 12/07/1963 ZOSTER VACCINE (1 of 2) 1994 ANNUAL WELLNESS VISIT 08/22/2018 RSV Vaccine - Adults (1 - 1- dose 75+ series) 12/07/2019 HEMOGLOBIN A1C 01/09/2025 07/11/2024, 07/11/2024 INFLUENZA VACCINE 03/09/2025 07/26/2024, , 05/25/2022, Additional history exists COVID-19 Vaccine ( - 2024-2 6 season) 2025 07/13/2023, 07/10/2021, 09/17/2020, Additional history exists Insurance [address] [place] [address] [facility] [employer] PPO Care Teams Transformer Repairer Relationship Specialty Start Date End Date Valerio Abraham MD [address] [place] [address] [place] [id number] PCP - General Family Medicine 12/10/23
== END 2025-06-01 23:59 ==
LOC: LAB.DROPOF 06-04 10:07
PROVIDERS: PCP Nurse Practitioner Family; Visit Provider Nurse Practitioner Family
DX: R30.0 Dysuria (principal)
CPT/HCPCS: 87086; 87088; 87186